=== PATIENT | male | born 1995 | race Caucasian/White ===

== ENCOUNTER 2016-08-04 01:41 | Emergency (ER) | payer OTHER ==
[~2016-08-04] VITALS: Ht 175.3 cm; Wt 86.3 kg
[~2016-08-04 01:41] MED LIST: AMPH20TA2 PO; AMPH30CA3 PO
[2016-08-04] MEDS ORDERED: LORAZEPAM 2 MG/ML 1 ML VIAL IM STA (01:45)
[2016-08-04] MEDS ORDERED: HALOPERIDOL LACTATE 5 MG/ML 1 ML VIAL IM STA (01:45)
[2016-08-04 01:55] VITALS: TEMP 36.4; O2SAT 98; Ht 175.3 cm; Wt 86.3 kg
[2016-08-04 02:35] LABS: BUN/CREATININE RATIO 17.6 (10-20); CALCIUM 8.4 mg/dl (8.5-10.1); CREATININE 1.2 mg/dl (0.60-1.40); POTASSIUM 3.6 mmol/L (3.5-5.1)
--- NOTE | 2016-08-04 04:55 | EMERGENCY ROOM VISIT NOTE ---
History Report prepared by Delfin: Elias Gray Under the Supervision of: Dr. Amadeo Pickett M.D. First contact with patient: 01:45 Chief Complaint: ALCOHOL OVERDOSE Stated Complaint: ALCOHOL OVERDOSE Nursing Triage Summary: arrived via amb with bls. pt was escorted out of the [employer] den and ems was called . 2 bystanders stated pt fell . pt arrives combative security present. History of Present Illness This HPI is limited due to alcohol intoxication. The patient is a 21 year old male who presents to the Emergency Room via EMS due to alcohol intoxication. Per hospital nursing staff the patient was thrown out of [facility]. The staff at [facility] were adamant that the patient fell and hit his head while being removed from the bar. He was fighting with EMS, and is actively fighting on exam. Source of History: EMS, nursing staff History Limited By: intoxication Review of Systems Unable to obtain secondary to heavily intoxicated and refusing to answer questions. Past Medical & Surgical Medical Problems: (1) ADD (attention deficit disorder) (2) Elevated troponin Family History Patient reports no known family medical history. Social History Smoking Status: Unknown if Ever Smoked Alcohol Use: occasionally Drug Use: none Marital Status: single Housing Status: lives with roommate Occupation Status: [employer] student Current/Historical Medications No Active Prescriptions or Reported Meds Allergies Coded Allergies: No Known Allergies (Unverified , 10/23/15) Physical Exam Vital Signs Date Time Temp Pulse Resp B/P Pulse Ox O2 Delivery O2 Flow Rate FiO2 08/04/16 06:12 78 16 102/49 92 Room Air 08/04/16 05:24 81 08/04/16 05:15 80 16 91/53 93 Room Air 08/04/16 04:14 94 16 120/58 96 08/04/16 03:18 88 16 118/50 97 08/04/16 02:35 90 16 123/62 92 Room Air 08/04/16 01:57 98 08/04/16 01:55 36.4 109 18 158/90 98 Room Air 08/04/16 01:55 98 Room Air Physical Exam GENERAL: Patient is heavily intoxicated. Smells of alcohol, aggressive, swearing, fighting against staff and EMS. HEAD: No evidence of Trauma. AT/NC EYES: injected conjunctiva. Normal EOM. Pupils equal/reactive. ENT: Mucous membranes moist, no nasal congestion, . NECK: No step-offs, no adenopathy, no meningismus, trachea is midline. LUNGS: No dyspnea. Clear to auscultation and equal bilaterally. No wheeze, no rhonchi. HEART: Regular rate and rhythm. No murmurs, rubs, gallops appreciated. ABDOMEN: Soft, nontender, bowel sounds positive, no masses appreciated, no peritonitis. BACK: No midline tenderness, no CVA tenderness EXTREMITIES: Normal motion all extremities, no cyanosis, no edema. NEUROLOGIC: Intoxicated. Alert, to person but not to place as he thought he was in [facility]. No acute motor or sensory deficits, no focal weakness, cranial nerves grossly intact. SKIN: Heavily tattooed. Abrasion over left flank No rash, no jaundice, no diaphoresis. Medical Decision & Procedures ER Provider Diagnostic Interpretation: X ray results and stated below per my interpretation and radiologist interpretation. Other radiology results and stated below per my review and radiologist interpretation: CT HEAD: Prior from 10/23/2015 No evidence of acute intracranial abnormality or skull fracture Radiologist: Penny Sierra M.D. Laboratory Results 08/04/16 02:00 Test 08/04/16 02:00 Anion Gap 16.0 mmol/L (3-11) Est Creatinine Clear Calc Drug Dose 105.1 ml/min Estimated GFR () 98.9 Estimated GFR (Non- 85.3 BUN/Creatinine Ratio 17.6 (10-20) Calcium Level 8.4 mg/dl (8.5-10.1) Chemistry Specimen Hemolysis Ethyl Alcohol mg/dL 421.0 mg/dl (0-3) Laboratory results as reviewed by me. Medications Administered Medications (Trade) Dose Ordered Sig/Vera Route Start Time Stop Time Status Last Admin Dose Admin Haloperidol Lactate (Haldol Inj) 5 mg NOW STAT IM 08/04/16 01:45 08/04/16 01:46 DC 08/04/16 01:57 5 MG Lorazepam (Ativan Inj) 2 mg NOW STAT IM 08/04/16 01:45 08/04/16 01:46 DC 08/04/16 01:58 2 MG ED Course 0144: The patient was evaluated in room B12A. A complete history and physical exam was performed. 0145: Ordered Lorazepam 2 mg IM, Haloperidol 5 mg IM. 0423: I checked on the patient at this time, he was asleep in bed. 0612: I checked on the patient at this time, he was asleep in bed. 0730: Patient will be signed out to Dr. Doe at change of shift. Medical Decision Differential: Alcohol Intoxication, Drug Intoxication, Electrolyte Abnormality, Trauma, Intracranial Event, Toxicological, Excited Delirium, Serotonin Syndrome , amongst other pathologies entertained. 21 yr old intoxicated male brought in by EMS after falling outside the den heavily intoxicated. EMS notes bystander saw patient strike his head though on exam no evidence of trauma. Given this did go ahead with CT head as he was far to intoxicated to get adequate exam. On arrival patient so combative I was unable to verbally deescalate nor re-direct the patient. The patient's combative behavior was risking a catastrophe. To protect the staff and the patient from harm it was necessary to chemically and physically restrain the patient. Patient with no evidence nor history for trauma. Protecting airway and breathing comfortably throughout ED stay. EtOH positive. CT head negative for trauma. Patient signed out to Dr Doe awaiting sobering up and sedation to wear off. Impression Primary Impression: Alcoholic intoxication Additional Impressions: Alcohol abuse Combative behavior Critical Care I have personally spent greater than 35 minutes of critical care time in the direct management of this patient. This was a life/limb threatening event. This includes time spent evaluating patient, direct bedside care, chart review, placing orders, interpretation of diagnostic studies, discussion with consultants, patient, and family members, as well as other required patient management activities. This 35 minutes is in excess of all separately billable procedures. Scribe Attestation The scribe's documentation has been prepared under my direction and personally reviewed by me in its entirety. I confirm that the note above accurately reflects all work, treatment, procedures, and medical decision making performed by me. Departure Information Dispostion Home / Self-Care Prescriptions No Active Prescriptions or Reported Meds Patient Instructions Alcohol Intoxication - [facility], My [facility] Additional Instructions You were severely combative with staff and had to be physically and chemically restrained to protect you and the staff of the Emergency Department. The medications given to you can sometimes cause side effects of muscle stiffness and twitching the next day. If you have concerns please return to Emergency Department for further evaluation. Problem Qualifiers Primary Impression: Alcoholic intoxication Complication of substance-induced condition: with unspecified complication Qualified Codes: F10.129 - Alcohol abuse with intoxication, unspecified
--- NOTE | 2016-08-04 07:32 | DIAGNOSTIC IMAGING REPORT ---
CT SCAN OF THE BRAIN WITHOUT IV CONTRAST CLINICAL HISTORY: Intoxication. Head injury. COMPARISON STUDY: CT of the brain dated 10/23/2015. TECHNIQUE: Unenhanced axial CT scan of the brain is performed from the vertex to the skull base. Automated dose control exposure was utilized. CT DOSE: 614.27 mGy.cm FINDINGS: Brain parenchyma: The brain parenchyma is normal in appearance. There is no hemorrhage, mass effect, or evidence of acute territorial ischemia by CT criteria. Drew-white matter is preserved. No extra-axial fluid collection is seen. Ventricles, sulci, cisterns: Normal in configuration. Intracranial vasculature: The visualized intracranial vasculature at the skull base is normal in appearance. Calvarium: There is no depressed calvarial fracture. Sinuses and mastoids: The visualized paranasal sinuses are clear. The mastoid air cells are well pneumatized. Orbits: The bony orbits are grossly intact. IMPRESSION: No acute intracranial abnormality. Electronically signed by: Prosper Fairchild M.D. 08/04/2016 7:31 AM Dictated Date/Time: 08/04/2016 7:29 AM
--- NOTE | 2016-08-04 08:58 | EMERGENCY ROOM VISIT NOTE ---
ED Visit Note First contact with patient: 06:54 21-year-old male with alcohol intoxication was signed off to me at change of shift from Dr. Pickett. Patient was reevaluated by myself at 0 850. Patient is sleeping soundly. Alcohol level was extremely high and therefore patient will be observed for at least another hour or two. The patient was reevaluated again just prior to discharge. He was able to walk and talk without difficulty. I believe the patient is safe to return home. IMPRESSION: Alcohol Intoxication
[2016-08-04 10:50] VITALS: BP 146/92; PULSE 78; O2SAT 100
== END 2016-08-04 10:48 | disposition home or self-care (01) ==
LOC: EDBD 01:41 → C.EDB 01:46
DX: F10.129 Alcohol abuse with intoxication, unspecified (principal); F91.9 Conduct disorder, unspecified; Z78.1 Physical restraint status; F90.9 Attention-deficit hyperactivity disorder, unspecified type